=== PATIENT | female | born 1940 | race Caucasian/White ===

== ENCOUNTER 2017-11-08 14:57 | Observation (INO) | payer MEDICARE, OTHER ==
[2017-11-08] VITALS (7 sets, daily range): BP systolic 153–227; BP diastolic 77–99; PULSE 86–104; RESP 18–21; TEMP 97.9–98.3; O2SAT 93–98
[~2017-11-08 14:57] MED LIST: AMLO5TAB2 PO; ATOR40TA16 PO; FENO160T PO; FERR325T18 PO; GLYC1TAB17 PO; LEVO.125 PO; METF1000 PO; NOVOINJ3 SQ; OMEP40CA2 PO; VICT18IN SQ; VITA100022 IV; VITATAB25 PO
[2017-11-08] MEDS ORDERED: SODIUM CHLOR 0.9% 1000 ML INJ 1,000 ML IV ONE (15:12)
[2017-11-08 15:28] LABS: I-STAT POTASSIUM 3.6 MMOL/L (3.5-4.9); I-STAT SODIUM 142 MMOL/L (138-146)
[2017-11-08 15:30] LABS: AUTOMATED NEUTROPHIL # 6.7 TH/MM3 (1.8-7.7); BASOPHIL # 0.1 TH/MM3 (0-0.2); EOSINOPHIL # 0.4 TH/MM3 (0-0.4); EOSINOPHIL % 3.7 % (0.0-4.0); HEMATOCRIT 38.6 % (35.0-46.0); HEMO FLAGS DIFF FINAL; LYMPH % 26.7 % (9.0-44.0); LYMPHOCYTE # 2.8 TH/MM3 (1.0-4.8); MEAN CELL VOLUME 87.6 FL (80.0-100.0); MEAN CORPUSCULAR HEMOGLOBIN 30.7 PG (27.0-34.0); MONO % 4.5 % (0.0-8.0); NEUT % 64.1 % (16.0-70.0); PLATELET COUNT 259 TH/MM3 (150-450); RED BLOOD COUNT 4.41 MIL/MM3 (4.00-5.30); RED CELL DISTRIBUTION WIDTH 14.2 % (11.6-17.2); WHITE BLOOD COUNT 10.5 TH/MM3 (4.0-11.0)
[2017-11-08 15:47] LABS: APTT (PATIENT) 24.8 SEC (24.3-30.1); INTERNATIONAL NORMALIZED RATIO 1.1 RATIO
--- NOTE | 2017-11-08 15:50 | RADRPT ---
EXAM DATE/TIME: 11/08/2017 15:05 [facility] COMPARISON: No previous studies available for comparison. INDICATIONS : Right side weakness, slurred speech. RADIATION DOSE: 56.77 CTDIvol (mGy) This report was called by Dr. Richardson to Dr Taylor at 1540 MEDICAL HISTORY : Hypertension. Gastroesophageal reflux disease. Diabetes SURGICAL HISTORY : None. ENCOUNTER: Initial ACUITY: 1 day PAIN SCALE: 0/10 LOCATION: cranial TECHNIQUE: Multiple contiguous axial images were obtained of the head. Using automated exposure control and adj ustment of the mA and/or kV according to patient size, radiation dose was kept as low as reasonably a chievable to obtain optimal diagnostic quality images. DICOM format image data is available electro nically for review and comparison. FINDINGS: CEREBRUM: Mild diffuse cerebral atrophy. The ventricles are normal for age. No evidence of midline shift, mass lesion, hemorrhage or acute infarction. No extra-axial fluid collections are seen. POSTERIOR FOSSA: The cerebellum and brainstem are intact. The 4th ventricle is midline. The cerebellopontine angle i s unremarkable. EXTRACRANIAL: The visualized portion of the orbits is intact. SKULL: The calvaria is intact. No evidence of skull fracture. CONCLUSION: 1. No acute intracranial abnormality. Jigar Bowser MD on November 08, 2017 at 15:37 Board Certified Radiologist. This report was verified electronically.
[2017-11-08 16:02] LABS: CREATINE KINASE 83 U/L (26-192)
--- NOTE | 2017-11-08 18:05 | PD ---
HPI Chief Complaint: Stroke Alert Time Seen by Provider: 15:12 Travel History International Travel<30 days: Yes Contact w/Intl Traveler<30days: Yes Name of Country Traveled to: [place] IN OCTOBER Traveled to known affect area: No History of Present Illness HPI To 76 year-old woman who presents to the emergency department complaining of right sided weakness paresthesias facial droop and dysarthria. Symptoms started at 12:30. She called her brought her to the emergency department. Symptoms were improving in route. Denies any history of previous similar symptoms. No other associated symptoms. History Past Medical History Narrative Medical Diabetes Hyperlipidemia Social History Alcohol Use: No Tobacco Use: No Allergies-Medications (Allergen,Severity, Reaction): Coded Allergies: shellfish derived (Unverified Allergy, Severe, 08/29/17) penicillin G (Unverified Allergy, Mild, 08/29/17) Uncoded Allergies: WHITE TAPE (Allergy, Severe, RASH, 11/19/09) Reported Meds & Prescriptions Reported Meds & Active Scripts Active Reported Omeprazole 40 Mg Cap 40 Mg PO BID Metformin (Metformin HCl) 1,000 Mg Tab 1,000 Mg PO BIDPC With meals Victoza Inj (Liraglutide Inj) 18 Mg/3 Ml Pen 1.8 Mg SQ ONCE Synthroid (Levothyroxine Sodium) 125 Mcg Tab 125 Mcg PO DAILY Novolog Flexpen Inj (Insulin Aspart) 300 Unit/3 Ml Pen 27 Units SQ BID Glycopyrrolate 1 Mg Tab 1 Mg PO DAILY Ferrous Sulfate 325 Mg (65 Mg Iron) Tablet 325 Mg PO DAILY Fenofibrate 160 Mg Tab 160 Mg PO DAILY Vitamin D-[address] (Cholecalciferol) 1,000 Unit Tab 50,000 Units PO 2XWEEK Vitamin B-12 ER (Cyanocobalamin) 1,000 Mcg Tab 12,000 Mcg IV MONTHLY Atorvastatin (Atorvastatin Calcium) 40 Mg Tab 40 Mg PO HS Amlodipine (Amlodipine Besylate) 5 Mg Tab 5 Mg PO DAILY Review of Systems Except as stated in HPI: all other systems reviewed are Neg Physical Exam Narrative GENERAL: Well-appearing 76 year-old woman, no acute distress. SKIN: Focused skin assessment warm/dry. HEAD: Atraumatic. Normocephalic. EYES: Pupils equal and round. No scleral icterus. No injection or drainage. ENT: No nasal bleeding or discharge. Mucous membranes pink and moist. NECK: Trachea midline. No JVD. CARDIOVASCULAR: Regular rate and rhythm. No murmur appreciated. RESPIRATORY: No accessory muscle use. Clear to auscultation. Breath sounds equal bilaterally. GASTROINTESTINAL: Abdomen soft, non-tender, nondistended. Hepatic and splenic margins not palpable. MUSCULOSKELETAL: No obvious deformities. No clubbing. No cyanosis. No edema. NEUROLOGICAL: Some right sided facial flattening, dysarthria, right sided subjective changes to sensation, intact however. Strength is full and equal upper and lower extremities. No visual field cuts. NIH 3. PSYCHIATRIC: Appropriate mood and affect; insight and judgment normal. Data Data Last Documented VS Vital Signs Date Time Temp Pulse Resp B/P (MAP) Pulse Ox O2 Delivery O2 Flow Rate FiO2 11/08/17 15:36 99 20 156/85 (108) 95 Room Air 11/08/17 15:04 98.3 Orders Orders Diet Npo (11/08/17 Dinner) Activity Bed Rest (11/08/17 ) Electrocardiogram (11/08/17 ) I-Stat Creatinine (11/08/17 15:12) I-Stat Profile (11/08/17 15:12) Prothrombin Time / Inr (Pt) (11/08/17 15:12) Act Partial Throm Time (Ptt) (11/08/17 15:12) Complete Blood Count With Diff (11/08/17 15:12) Fibrinogen (11/08/17 15:12) Creatine Kinase (Cpk) (11/08/17 15:12) Troponin I (11/08/17 15:12) Ua Includes Microscopic (11/08/17 15:12) Drug Screen, Random Urine (11/08/17 15:12) Type And Screen (11/08/17 15:12) Ct Brain W/O Iv Contrast(Rout) (11/08/17 ) Consult Neurology (11/08/17 ) Blood Glucose (11/08/17 15:12) Ecg Monitoring (11/08/17 15:12) Neuro Checks Q2HX12,Q4H (11/08/17 15:12) Nursing Bedside Swallow Assess .ONCE (11/08/17 15:12) Iv Access Insert/Monitor (11/08/17 15:12) NPO (11/08/17 15:12) Oximetry (12/8/17 15:12) Oxygen Administration (11/08/17 15:12) Sodium Chlor 0.9% 1000 Ml Inj (Ns 1000 M (11/08/17 15:12) Resp Oxygen Haja C Titrat 1-4 L (11/08/17 15:12) Cath For Specimen (11/08/17 15:12) (Hub Use Only)Inp Phy Cons/Ref (11/08/17 ) Labs Laboratory Tests Test 11/08/17 15:08 White Blood Count 10.5 TH/MM3 Red Blood Count 4.41 MIL/MM3 Hemoglobin 13.5 GM/DL Bedside Hemoglobin 13.9 G/DL Hematocrit 38.6 % Bedside Hematocrit 41.0 % Mean Corpuscular Volume 87.6 FL Mean Corpuscular Hemoglobin 30.7 PG Mean Corpuscular Hemoglobin Concent 35.0 % Red Cell Distribution Width 14.2 % Platelet Count 259 TH/MM3 Mean Platelet Volume 10.8 FL Neutrophils (%) (Auto) 64.1 % Lymphocytes (%) (Auto) 26.7 % Monocytes (%) (Auto) 4.5 % Eosinophils (%) (Auto) 3.7 % Basophils (%) (Auto) 1.0 % Neutrophils # (Auto) 6.7 TH/MM3 Lymphocytes # (Auto) 2.8 TH/MM3 Monocytes # (Auto) 0.5 TH/MM3 Eosinophils # (Auto) 0.4 TH/MM3 Basophils # (Auto) 0.1 TH/MM3 CBC Comment DIFF FINAL Differential Comment Prothrombin Time 11.0 SEC Prothromb Time International Ratio 1.1 RATIO Activated Partial Thromboplast Time 24.8 SEC Fibrinogen 229 mg/dL Bedside Sodium 142 MMOL/L Bedside Potassium 3.6 MMOL/L Bedside Chloride 105 MMOL/L Bedside Blood Urea Nitrogen 22 MG/DL Bedside Creatinine 1.0 MG/DL Bedside Glucose 206 MG/DL Total Creatine Kinase 83 U/L Troponin I LESS THAN 0.02 NG/ML [facility] Medical Decision Making Medical Screen Exam Complete: Yes Emergency Medical Condition: Yes Interpretation(s) CT head negative CBC unremarkable. 20. Chemistries are unremarkable, glucose 206 Troponin negative Differential Diagnosis CVA, TIA, stroke mimic, infection, other Narrative Course Medical decision making nursing 6 year-old woman presents emergent department with stroke like symptoms. Stroke alert was called. Symptoms are rapidly improving. Bedtime neurologist evaluated stroke symptoms completely improved. She had NIH of 0 or 1 on his evaluation. Given her rapid improvement, and minimal symptoms, decision made not to proceed with TPA. Patient was monitored carefully. Critical Care Narrative Aggregate critical care time was 35 minutes. Time to perform other separately billable procedures was not included in the critical care time. My time did not include minutes spent treating any other patients simultaneously or on activities that did not directly contribute to the patient's treatment. The services I provided to this patient were to treat and/or prevent clinically significant deterioration that could result in: , disability, permanent stroke symptoms, increased morbidity. I provided critical care services requiring my management, as noted below: Chart data review, documentation time, medication orders and management, vital sign assessments/reviewing monitor data, ordering and reviewing lab tests, ordering and interpreting/reviewing x-rays and diagnostic studies, care of the patient and discussion of the patient with the admitting physicians. Diagnosis Primary Impression: Right sided weakness Admitting Information Admitting Physician Requests: Manan José MD Nov 08, 2017 18:05
[2017-11-08] MEDS ORDERED: ASPIRIN 81 MG CHEW TAB CHEW ONE (19:45)
--- NOTE | 2017-11-08 19:53 | HHI.HP ---
[facility] Service [facility] Primary Care Physician Unknown Admission Diagnosis CVA vs TIA Diagnoses: Travel History International Travel<30 Days: Yes Contact w/Intl Traveler <30 Da: Yes Name of Country Traveled to: [place] IN OCTOBER Traveled to Known Affected Are: No History of Present Illness 76-year-old female with a past medical history significant for hypertension, hyperlipidemia, insulin-dependent diabetes mellitus, hypothyroidism and pernicious anemia presents to the emergency department after sustaining weakness and numbness to her right hand and arm, facial numbness and dysarthria. The patient was driving down the road when suddenly she felt her right hand become heavy and numb. She states this sensation traveled up her arm and she was unable to lift her arm or use it to drive. She says she also had a numbness in the right side of her face. She got where she was going she felt she was unable to express herself and words. She states she knew what she was trying to say but she was unable to make the words come out. The symptoms abated on her arrival to the emergency department. Head CT negative for acute intracranial abnormality. Review of Systems Denies fever or chills Denies blurry vision, otorrhea, rhinorrhea Denies sore throat and cough No chest pain, palpitations, shortness of breath No abdominal pain Denies constipation/diarrhea/nausea/vomiting Denies muscle pain/weakness No rashes Past Family Social History Past Medical History Hypertension Hyperlipidemia Insulin-dependent diabetes mellitus Hypothyroidism secondary to Graves' disease Pernicious anemia Past Surgical History 2 Hysterectomy Cholecystectomy Right knee surgery Reported Medications Reported Meds & Active Scripts Active Reported Omeprazole 40 Mg Cap 40 Mg PO BID Metformin (Metformin HCl) 1,000 Mg Tab 1,000 Mg PO BIDPC With meals Victoza Inj (Liraglutide Inj) 18 Mg/3 Ml Pen 1.8 Mg SQ ONCE Synthroid (Levothyroxine Sodium) 125 Mcg Tab 125 Mcg PO DAILY Novolog Flexpen Inj (Insulin Aspart) 300 Unit/3 Ml Pen 27 Units SQ BID Glycopyrrolate 1 Mg Tab 1 Mg PO DAILY Ferrous Sulfate 325 Mg (65 Mg Iron) Tablet 325 Mg PO DAILY Fenofibrate 160 Mg Tab 160 Mg PO DAILY Vitamin D-[address] (Cholecalciferol) 1,000 Unit Tab 50,000 Units PO 2XWEEK Vitamin B-12 ER (Cyanocobalamin) 1,000 Mcg Tab 12,000 Mcg IV MONTHLY Atorvastatin (Atorvastatin Calcium) 40 Mg Tab 40 Mg PO HS Amlodipine (Amlodipine Besylate) 5 Mg Tab 5 Mg PO DAILY Allergies: Coded Allergies: shellfish derived (Unverified Allergy, Severe, 08/29/17) penicillin G (Unverified Allergy, Mild, 08/29/17) Uncoded Allergies: WHITE TAPE (Allergy, Severe, RASH, 11/19/09) Family History Father with CAD Social History Remote history of smoking. Denies alcohol or illicit drugs. Physical Exam Vital Signs Vital Signs Date Time Temp Pulse Resp B/P (MAP) Pulse Ox O2 Delivery O2 Flow Rate FiO2 11/08/17 19:21 11/08/17 18:40 94 21 11/08/17 15:36 99 20 156/85 (108) 95 Room Air 11/08/17 15:29 93 Room Air 11/08/17 15:29 93 Room Air 11/08/17 15:10 99 20 194/88 (123) 98 Room Air 11/08/17 15:04 98.3 11/08/17 15:01 104 18 227/99 (141) 97 Room Air Physical Exam GENERAL: female sitting up in bed SKIN: No rashes, ecchymoses or lesions. Cool and dry. HEAD: Atraumatic. Normocephalic. No temporal or scalp tenderness. EYES: Pupils equal round and reactive. Extraocular motions intact. No scleral icterus. No injection or drainage. ENT: Nose without bleeding, purulent drainage or septal hematoma. Throat without erythema, tonsillar hypertrophy or exudate. Uvula midline. Airway patent. NECK: Trachea midline. No JVD or lymphadenopathy. Supple, nontender, no meningeal signs. CARDIOVASCULAR: Regular rate and rhythm without murmurs, gallops, or rubs. RESPIRATORY: Clear to auscultation. Breath sounds equal bilaterally. No wheezes , rales, or rhonchi. GASTROINTESTINAL: Abdomen soft, non-tender, nondistended. No hepato-splenomegaly , or palpable masses. No guarding. MUSCULOSKELETAL: Extremities without clubbing, cyanosis, or edema. No joint tenderness, effusion, or edema noted. No calf tenderness. NEUROLOGICAL: Awake and alert. Cranial nerves II through XII intact. Motor and sensory within normal limits. Five out of 5 muscle strength in all muscle groups except right handgrip 3/5, which the patient states is chronic and 2/2 OA. Normal speech. No facial droop. Laboratory Laboratory Tests Test 11/08/17 15:08 White Blood Count 10.5 Red Blood Count 4.41 Hemoglobin 13.5 Bedside Hemoglobin 13.9 Hematocrit 38.6 Bedside Hematocrit 41.0 Mean Corpuscular Volume 87.6 Mean Corpuscular Hemoglobin 30.7 Mean Corpuscular Hemoglobin Concent 35.0 Red Cell Distribution Width 14.2 Platelet Count 259 Mean Platelet Volume 10.8 Neutrophils (%) (Auto) 64.1 Lymphocytes (%) (Auto) 26.7 Monocytes (%) (Auto) 4.5 Eosinophils (%) (Auto) 3.7 Basophils (%) (Auto) 1.0 Neutrophils # (Auto) 6.7 Lymphocytes # (Auto) 2.8 Monocytes # (Auto) 0.5 Eosinophils # (Auto) 0.4 Basophils # (Auto) 0.1 CBC Comment DIFF FINAL Differential Comment Prothrombin Time 11.0 Prothromb Time International Ratio 1.1 Activated Partial Thromboplast Time 24.8 Fibrinogen 229 Bedside Sodium 142 Bedside Potassium 3.6 Bedside Chloride 105 Bedside Blood Urea Nitrogen 22 Bedside Creatinine 1.0 Bedside Glucose 206 Total Creatine Kinase 83 Troponin I LESS THAN 0.02 Result Diagram: 11/08/17 1508 Caprini VTE Risk Assessment Caprini VTE Risk Assessment: Mod/High Risk (score >= 2) Caprini Risk Assessment Model Point Value = 1 Point Value = 2 Point Value = 3 Point Value = 5 Age 41-60 Minor surgery BMI > 25 kg/m2 Swollen legs Varicose veins or History of unexplained or recurrent spontaneous Oral contraceptives or hormone replacement Sepsis (< 1 month) Serious lung disease, including pneumonia (< 1 month) Abnormal pulmonary function Acute myocardial infarction Congestive heart failure (< 1 month) History of inflammatory bowel disease Medical patient at bed rest Age 61-74 Arthroscopic surgery Major open surgery (> 45 min) Laparoscopic surgery (> 45 min) Malignancy Confined to bed (> 72 hours) Immobilizing plaster cast Central venous access Age >= 75 History of VTE Family history of VTE Factor V Leiden Prothrombin [id number] Lupus anticoagulant Anticardiolipin antibodies Elevated serum homocysteine Heparin-induced thrombocytopenia Other congenital or acquired thrombophilia Stroke (< 1 month) Elective arthroplasty Hip, pelvis, or leg fracture Acute spinal cord injury (< 1 month) Prophylaxis Regimen Total Risk Factor Score Risk Level Prophylaxis Regimen 0-1 Low Early ambulation 2 Moderate Order ONE of the following: *Sequential Compression Device (SCD) *Heparin 5000 units SQ BID 3-4 Higher Order ONE of the following medications: *Heparin 5000 units SQ TID *Enoxaparin/Lovenox 40 mg SQ daily (WT < 150 kg, CrCl > 30 mL/min) *Enoxaparin/Lovenox 30 mg SQ daily (WT < 150 kg, CrCl > 10-29 mL/min) *Enoxaparin/Lovenox 30 mg SQ BID (WT < 150 kg, CrCl > 30 mL/min) AND/OR *Sequential Compression Device (SCD) 5 or more Highest Order ONE of the following medications: *Heparin 5000 units SQ TID (Preferred with Epidurals) *Enoxaparin/Lovenox 40 mg SQ daily (WT < 150 kg, CrCl > 30 mL/min) *Enoxaparin/Lovenox 30 mg SQ daily (WT < 150 kg, CrCl > 10-29 mL/min) *Enoxaparin/Lovenox 30 mg SQ BID (WT < 150 kg, CrCl > 30 mL/min) AND *Sequential Compression Device (SCD) Assessment and Plan Assessment and Plan 76-year-old female with a past medical history significant for hypertension, hyperlipidemia, insulin-dependent diabetes mellitus, hypothyroidism and pernicious anemia presents with TIA symptoms. 1. TIA Head CT negative for acute intracranial abnormality Neurology consulted, appreciate assistance Status post aspirin Carotid ultrasound, MRI brain, echo pending A1c, lipid profile pending 2. Insulin-dependent diabetes mellitus Continue home NovoLog twice a day SSI 3. Hypertension, hyperlipidemia, hypothyroidism Continue home medications FEN Heart healthy diet after swallow eval NS at 70 cc/hour Electrolytes: Replete when necessary Heparin Case management consulted Bonita Collier MD Nov 08, 2017 19:53
[2017-11-08] MEDS: INSULIN ASPART SUPPLEMENTAL SCALE SQ SCH (21:00)
[2017-11-08] MEDS ORDERED: ATORVASTATIN 40 MG TAB PO SCH (21:00)
[2017-11-08] MEDS: CLOPIDOGREL 75 MG TAB PO SCH (22:00)
[2017-11-08] MEDS: PANTOPRAZOLE SOD 40 MG DELAYED RELEASE TAB PO SCH (22:00)
[2017-11-08] MEDS: INSULIN ASPART 1,000 UNITS/10 ML VIAL SQ SCH (22:01)
[2017-11-08] MEDS: HEPARIN SODIUM - SQ 10,000 UNITS/ML VIAL SQ SCH (22:02)
--- NOTE | 2017-11-08 23:52 | MB ---
cc: NIKO ESCALERA MD DATE OF CONSULTATION: 11/08/2017. REASON FOR CONSULTATION: Stroke alert. HISTORY OF PRESENT ILLNESS Ms. Hurst is a 76-year-old female who presented to the emergency department at [facility] complaining of right-sided upper extremity sudden pain while she was driving that started mainly in the hand and then gradually spread to the right upper extremity and this was followed by weakness and numbness and facial numbness as well and she thinks she was a little bit slurring "I felt my tongue was thick". Symptoms started at 12:30, called her who brought her to the emergency department. Symptoms started improving en route. During the encounter in the emergency room, the patient did not have any symptoms. Denies pain or weakness and now the stroke scale is 0. Head CT scan without any intracranial abnormality. I discussed the case with the emergency room physician, Dr. Taylor, and the decision is that she is not a candidate for IV tPA. Of note, her blood pressure upon presentation was 227/99 with a pulse rate of 104. The was at the bedside and admitted for TIA workup. The patient is aspirin-naive and she states that she was on aspirin years ago and she used to have prolonged bleeding when she would cut her finger but denied any gastrointestinal side effects. REVIEW OF SYSTEMS: A twelve-point review of systems was negative except as stated in the history of present illness. PAST MEDICAL HISTORY: 1. Diabetes. 2. Hyperlipidemia. 3. Hypothyroidism. 4. Hypertension. SOCIAL HISTORY: Denies alcohol use or tobacco abuse. ALLERGIES: SHELLFISH. PENICILLIN. MEDICATIONS: 1. Omeprazole. 2. Metformin. 3. Victoza. 4. NovoLog. 5. Synthroid. 6. Ferrous sulfate. 7. Fenofibrate. 8. Vitamin D. 9. Vitamin B12. 10. Atorvastatin. 11. Amlodipine. FAMILY HISTORY: Noncontributory. PHYSICAL EXAMINATION: GENERAL: The patient is awake, alert, good historian, anxious. HEAD, EYES, EARS, NOSE, THROAT: Normocephalic and atraumatic. Intact hearing. Intact vision. NECK: Trachea is in the midline. No jugular venous distention. No carotid bruits. CARDIOVASCULAR: Regular rate and rhythm. RESPIRATORY: Clear to auscultation. No wheezes. GASTROINTESTINAL: The abdomen is soft, nontender and nondistended. MUSCULOSKELETAL: No deformity. No clubbing. No cyanosis. NEUROLOGICAL EXAMINATION: Awake, alert and oriented to time, person and place. Cranial nerves II through XII are intact. Motor system - 5/5 bilateral symmetrical. No abnormal movements. Reflexes 2+ bilateral and symmetrical. Bilateral ankle reflexes. Plantars bilateral downgoing. [id number] and heel -to-puga are intact. PSYCHIATRIC: Appropriate mood and affect. Normal insight and judgment. DIAGNOSTIC TESTS: Labs: White blood cells 10.5, hemoglobin 13.5, platelet count 259,000. Sodium 142, potassium 3.6, BUN 22, creatinine 1, blood glucose 206. DIAGNOSTIC IMAGING: Head CT scan without contrast reveals no acute intracranial abnormality. Mild diffuse cerebral atrophy. Ventricles are normal for age. No evidence of midline shift. DIAGNOSTIC IMPRESSION: 1. TIA versus ischemic lacunar stroke. 2. Hypertensive urgency. 3. Diabetes mellitus. 4. Hypothyroidism. 5. Hypercholesterolemia. PLAN: 1. Neuro checks q 1 hourly. 2. Plavix 75 milligrams. The patient had adverse effect of aspirin in the past, reported as prolonged bleeding. 3. Statin. 4. MRI brain without contrast. 5. Carotid ultrasound. 6. Telemetry. 7. Goal blood pressure 135-140/75-80. 8. DVT prophylaxis with SCDs. 9. GI prophylaxis. Thank you for the opportunity to participate in the care of your patient. Niko Escalera MD [facility]/[place] /7:30 PM /11:35 PM [facility]ITALMartinez
[2017-11-09] VITALS: BP 144/69; PULSE 86; RESP 18; TEMP 98.2; O2SAT 93
[2017-11-09 06:26] VITALS: BP 121/65; PULSE 86; RESP 18; TEMP 97.7; O2SAT 94
[2017-11-09 07:50] LABS: AUTOMATED NEUTROPHIL # 3.7 TH/MM3 (1.8-7.7); BASOPHIL # 0.1 TH/MM3 (0-0.2); EOSINOPHIL # 0.3 TH/MM3 (0-0.4); HEMO FLAGS DIFF FINAL; LYMPHOCYTE # 2.2 TH/MM3 (1.0-4.8); MEAN CELL VOLUME 87.2 FL (80.0-100.0); MEAN CORPUSCULAR HEMOGLOBIN 28.7 PG (27.0-34.0); MEAN CORPUSCULAR HGB CONC 32.9 % (32.0-36.0); MONO % 4.6 % (0.0-8.0); NEUT % 56.4 % (16.0-70.0); PLATELET COUNT 203 TH/MM3 (150-450); RED BLOOD COUNT 4.24 MIL/MM3 (4.00-5.30); RED CELL DISTRIBUTION WIDTH 14.2 % (11.6-17.2); WHITE BLOOD COUNT 6.6 TH/MM3 (4.0-11.0)
[2017-11-09 08:00] VITALS: BP 140/67; PULSE 76; RESP 16; TEMP 97.4; O2SAT 95
[2017-11-09] MEDS: INSULIN ASPART SUPPLEMENTAL SCALE SQ SCH ×2 (08:00→12:00)
[2017-11-09] MEDS: CLOPIDOGREL 75 MG TAB PO SCH (08:02)
[2017-11-09] MEDS: PANTOPRAZOLE SOD 40 MG DELAYED RELEASE TAB PO SCH (08:02)
[2017-11-09] MEDS: HEPARIN SODIUM - SQ 10,000 UNITS/ML VIAL SQ SCH (08:03)
[2017-11-09] MEDS: INSULIN ASPART 1,000 UNITS/10 ML VIAL SQ SCH (08:03)
[2017-11-09 08:13] LABS: BICARBONATE 27.1 MEQ/L (21.0-32.0); POTASSIUM 3.3 MEQ/L (3.5-5.1)
[2017-11-09 08:16] LABS: HDL CHOLESTEROL 21.5 MG/DL (40.0-60.0)
[2017-11-09] MEDS ORDERED: FENOFIBRATE 145 MG TAB PO SCH (09:00)
[2017-11-09] MEDS ORDERED: LEVOTHYROXINE SODIUM 125 MCG TAB PO SCH (09:00)
[2017-11-09] MEDS ORDERED: FERROUS SULFATE 325 MG (65 MG ELEMENTAL IRON) TAB PO SCH (09:00)
[2017-11-09] MEDS ORDERED: amLODIPine BESYLATE 5 MG TAB PO SCH (09:00)
--- NOTE | 2017-11-09 10:05 | RADRPT ---
EXAM DATE/TIME: 11/09/2017 09:17 [facility] COMPARISON: No previous studies available for comparison. INDICATIONS : Transient ischemic attack. MEDICAL HISTORY : Gastroesophageal reflux disease. Hypercholesterolemia. Hypertension. Thyroid disease. Cataracts. Kidn ey stones. Radiation therapy. Arthritis. Diabetes. Anxiety. Blood transfusion. SURGICAL HISTORY : Hysterectomy. Cholecystectomy. Right knee surgery. Eye surgery. Lump removal. ENCOUNTER: Initial ACUITY: 2 days PAIN SCORE: 0/10 LOCATION: Bilateral neck PEAK SYSTOLIC VELOCITIES (cm/sec): ICA/CCA RATIO: Right: 1.2 Left: 1.7 ICA: Right: 98 Left: 140 CCA: Right: 79 Left: 85 ECA: Right: 174 Left: 177 VERTEBRAL: Right: 81 antegrade Left: 44 antegrade Elevated flow velocities and ICA/CCA ratios have been found to correlate with increased degrees of vessel stenosis, calculated as percentage of diameter relative to a normal segment of distal ICA/CCA FINDINGS: RIGHT CAROTID: No significant stenosis is visualized. The waveforms are within normal limits. LEFT CAROTID: No significant stenosis is visualized. The waveforms are within normal limits. VERTEBRAL ARTERIES: Antegrade flow is seen in both vertebral arteries. MISCELLANEOUS: None. CONCLUSION: 1. Mild bilateral carotid calcified plaque without significant flow-limiting stenosis. 2. Antegrade vertebral artery flow bilaterally. Jigar Bowser MD on November 09, 2017 at 10:02 Board Certified Radiologist. This report was verified electronically.
--- NOTE | 2017-11-09 11:42 | RADRPT ---
EXAM DATE/TIME: 11/09/2017 11:10 [facility] COMPARISON: No previous studies available for comparison. INDICATIONS : Stroke. MEDICAL HISTORY : Diabetes mellitus type 2. Hypertension. Radiation to thyroid. SURGICAL HISTORY : Hysterectomy. Cholecystectomy. ENCOUNTER: Initial ACUITY: 1 day PAIN SCORE: 0/10 LOCATION: cranial TECHNIQUE: Multiplanar, multisequence MRI of the brain was performed without contrast. FINDINGS: CEREBRUM: The ventricles are normal for age. No evidence of midline shift, mass lesion, hemorrhage or acute in farction. No extraaxial fluid collections are seen. The pituitary gland and suprasellar cistern are normal in configuration. WHITE MATTER: Mild periventricular and scattered focal white matter T2 prolongation consistent with small vessel is chemic demyelination. POSTERIOR FOSSA: The cerebellum and brainstem are intact. The 4th ventricle is midline. The cerebellopontine angle is unremarkable. The cerebellar tonsils are normal in position. DIFFUSION IMAGING: No focal areas of restricted diffusion are seen. No evidence of acute infarction. EXTRACRANIAL: The visualized portions of the orbits and paranasal sinuses are unremarkable. CONCLUSION: 1. No acute ischemia/infarct. No acute intracranial abnormality. 2. Senescent changes with mild small vessel ischemic periventricular white matter demyelination. Jigar Bowser MD on November 09, 2017 at 11:38 Board Certified Radiologist. This report was verified electronically.
[2017-11-09] MEDS ORDERED: PLAV75TA29 PO (12:07)
[2017-11-09] MEDS ORDERED: NOVOLOGP2 SQ (12:07)
--- NOTE | 2017-11-09 12:25 | HHI.PR ---
Subjective Remarks Follow up for TIA. Patient is doing well. Back to her baseline. No acute concerns. Objective Vitals Vital Signs Date Time Temp Pulse Resp B/P (MAP) Pulse Ox O2 Delivery O2 Flow Rate FiO2 11/09/17 08:00 97.4 76 16 140/67 (91) 95 11/09/17 06:26 97.7 86 18 121/65 (83) 94 11/09/17 00:00 98.2 86 18 144/69 (94) 93 11/08/17 20:00 97.9 86 21 153/77 (102) 95 11/08/17 19:21 11/08/17 18:40 94 21 11/08/17 15:36 99 20 156/85 (108) 95 Room Air 11/08/17 15:29 93 Room Air 11/08/17 15:29 93 Room Air 11/08/17 15:10 99 20 194/88 (123) 98 Room Air 11/08/17 15:04 98.3 11/08/17 15:01 104 18 227/99 (141) 97 Room Air I/O 11/08/17 11/08/17 11/08/17 11/09/17 11/09/17 11/09/17 07:00 15:00 23:00 07:00 15:00 23:00 Output Total 150 ml Balance -150 ml Output Urine Total 150 ml # Voids 1 # Bowel Movements 0 0 Result Diagram: 11/09/17 0600 11/09/17 0650 Imaging Last Impressions Carotid Artery Ultrasound 11/09/17 0000 Signed Impressions: Service Date/Time: Thursday, November 09, 2017 09:17 - CONCLUSION: 1. Mild bilateral carotid calcified plaque without significant flow-limiting stenosis. 2. Antegrade vertebral artery flow bilaterally. Jigar Bowser MD Head CT 11/08/17 0000 Signed Impressions: Service Date/Time: Wednesday, November 08, 2017 15:05 - CONCLUSION: 1. No acute intracranial abnormality. Jigar Bowser MD Objective Remarks GENERAL: Alert, Oriented x 3, NAD. SKIN: Warm and dry. HEAD: Normocephalic. EYES: No scleral icterus. No injection or drainage. NECK: Supple, trachea midline. No JVD or lymphadenopathy. CARDIOVASCULAR: Regular rate and rhythm without murmurs, gallops, or rubs. RESPIRATORY: Breath sounds equal bilaterally. No accessory muscle use. GASTROINTESTINAL: Abdomen soft, non-tender, nondistended. MUSCULOSKELETAL: No cyanosis, or edema. BACK: Nontender without obvious deformity. No CVA tenderness. Procedures None. A/P Assessment and Plan 76-year-old female with a past medical history significant for hypertension, hyperlipidemia, insulin-dependent diabetes mellitus, hypothyroidism and pernicious anemia presents with TIA symptoms. 1. TIA Head CT negative for acute intracranial abnormality Neurology consulted -- started on Plavix. Carotid ultrasound, MRI brain unremarkable. echo report pending. A1c, lipid profile pending 2. Diabetes type 2 At home patient takes Metformin, Victoza as well as insulin. My concern is whether TIA symptoms were related to hypoglycemia. We will discharge patient on Metformin and sliding scale. Ideally, she should be on long acting insulin at night. Patient will contact her Mechanical Unit Repairer and discuss about her medications. 3. Hypertension, hyperlipidemia, hypothyroidism Continue home medications Discharge patient to home Condition on discharge: Improved Diabetic Diet as tolerated Ad Heidy activity Rx written: - Plavix 75mg Qday - Sliding scale insulin. Patient will likely need long acting insulin. She will follow up with her Mechanical Unit Repairer to discuss insulin regimen. I called patient's around 8: 30PM to let them know the result of Echo which was essentially a normal study. Follow-up with primary care physician in one week. Mechanical Unit Repairer within 3-5 days. Beny Christian DO Nov 09, 2017 12:25
[2017-11-09 12:41] LABS: HEMOGLOBIN A1a 0.9 %; HEMOGLOBIN A1b 2.6 %; HEMOGLOBIN Ao 81.2 %; HEMOGLOBIN LA1C 2.6 %; HEMOGLOBIN P3 4.5 %
--- NOTE | 2017-11-09 12:48 | EKG ---
Date Performed: 11/08/2017 Time Performed: 15:33:55 PTAGE: 76 years EKG: Sinus rhythm POSSIBLE LEFT ATRIAL ENLARGEMENT BORDERLINE ECG PREVIOUS TRACING : 06/28/2012 00.03 Since previous tracing, PACs no longer present. DOCTOR: Laurent Mejía Interpretating Date/Time 11/09/2017 12:47:52
--- NOTE | 2017-11-09 14:47 | ECHRPT ---
Indication: cva/tia CONCLUSIONS BP: / HR: Rhythm: MEASUREMENTS (Male / Female) Normal Values Technical Quality:Fair 2D ECHO LV Diastolic Diameter PLAX 3.7 cm 4.2 - 5.9 / 3.9 - 5.3 cm LV Systolic Diameter PLAX 2.8 cm IVS Diastolic Thickness 1.5 cm 0.6 - 1.0 / 0.6 - 0.9 cm LVPW Diastolic Thickness 0.9 cm 0.6 - 1.0 / 0.6 - 0.9 cm LV Relative Wall Thickness 0.7 RV Internal Dim ED PLAX 2.3 cm M-MODE Aortic Root Diameter MM 2.9 cm LA Systolic Diameter MM 2.5 cm LA Ao Ratio MM 0.9 AV Cusp Separation MM 2.0 cm FINDINGS LEFT VENTRICLE The left ventricular systolic function is normal with an estimated ejection fraction in the range of 55-60%. Normal left ventricular size. RIGHT VENTRICLE Normal right ventricular size and systolic function. LEFT ATRIUM The left atrial size is normal. RIGHT ATRIUM The right atrial size is normal. ATRIAL SEPTUM Normal atrial septal thickness without atrial level shunting by limited color doppler interrogation. AORTA The aortic root and proximal ascending aorta are normal in size on limited imaging. MITRAL VALVE Structurally normal mitral valve. [id number] mitral valve regurgitation. AORTIC VALVE Trileaflet aortic valve. No aortic valve stenosis or regurgitation. TRICUSPID VALVE Structurally normal tricuspid valve. There is mild tricuspid valve regurgitation. PULMONARY VALVE The pulmonary valve is not well visualized. VESSELS The inferior vena cava is normal in size. PERICARDIUM No pericardial effusion. Manan Sim MD, FACC (Electronically Signed) Final Date:09 November 2017 14:45
== END 2017-11-09 13:30 | disposition home or self-care (01) ==
LOC: NEPE 14:57 → NEDA 18:00 → UNDOADMOB 18:00 → N05A 18:58 → NEDA 18:58 → UNDODISOB 11-09 13:30
PROVIDERS: ADMIT Hospitalist; ATTEND Hospitalist
DX: G45.9 Transient cerebral ischemic attack, unspecified (principal); E11.649 Type 2 diabetes mellitus with hypoglycemia without coma; I10 Essential (primary) hypertension; I16.0 Hypertensive urgency; E78.00 Pure hypercholesterolemia, unspecified; E03.9 Hypothyroidism, unspecified; E05.00 Thyrotoxicosis with diffuse goiter without thyrotoxic crisis or storm; K21.9 Gastro-esophageal reflux disease without esophagitis; G31.9 Degenerative disease of nervous system, unspecified; F41.9 Anxiety disorder, unspecified; M19.90 Unspecified osteoarthritis, unspecified site; Z79.4 Long term (current) use of insulin; Z79.899 Other long term (current) drug therapy; Z87.891 Personal history of nicotine dependence
CPT/HCPCS: 70450; 70551; 80048; 80061; 82435; 82550; 82565; 82947; 82948; 83036; 84132; 84295; 84484; 84520; 85025; 85384; 85610; 85730; 93005; 93306; 93880; 96372; 97161; 99291; G0378; G8987; G8988; J1644; J1815; J7030